=== PATIENT | male | born 1995 | race Two or more races ===

== ENCOUNTER 2019-03-06 11:43 | Outpatient (CLI) | payer OTHER ==
[~2019-03-06 11:43] MED LIST: ADVAIR 2501 DISK W/1; ATROVENT21 MCG; IMODIUM A-D2 MG PO; PEPCID40 MG PO; PHENERGAN25 MG PO; PROVENTIL0.5 ML/2.5
== END 2019-03-06 11:55 | disposition home or self-care (01) ==
LOC: LAB 11:43
DX: D51.0 Vitamin B12 deficiency anemia due to intrinsic factor deficiency (principal); D51.1 Vitamin B12 deficiency anemia due to selective vitamin B12 malabsorption with proteinuria; K29.40 Chronic atrophic gastritis without bleeding; B96.81 Helicobacter pylori [H. pylori] as the cause of diseases classified elsewhere; D50.8 Other iron deficiency anemias; D51.8 Other vitamin B12 deficiency anemias; I10 Essential (primary) hypertension; E03.8 Other specified hypothyroidism; E06.3 Autoimmune thyroiditis; R97.0 Elevated carcinoembryonic antigen [CEA]

== ENCOUNTER → 2019-06-02 | Outpatient (CLI) | payer OTHER | END | disposition home or self-care (01) | LOC: RAD 15:30 | DX: M77.42 Metatarsalgia, left foot (principal); M25.572 Pain in left ankle and joints of left foot ==

== ENCOUNTER → 2019-06-03 | Outpatient (CLI) | payer OTHER | END | disposition home or self-care (01) | LOC: RAD 12:38 → SONOGRAMA 12:38 → MAMO-SONO 13:15 | DX: S93.492A Sprain of other ligament of left ankle, initial encounter (principal) ==

== ENCOUNTER 2019-06-09 09:32 | Outpatient (CLI) | payer OTHER | END 2019-06-09 09:39 | disposition home or self-care (01) | LOC: LAB 09:32 | DX: D51.0 Vitamin B12 deficiency anemia due to intrinsic factor deficiency (principal); D51.1 Vitamin B12 deficiency anemia due to selective vitamin B12 malabsorption with proteinuria; K29.40 Chronic atrophic gastritis without bleeding; B96.81 Helicobacter pylori [H. pylori] as the cause of diseases classified elsewhere; D50.8 Other iron deficiency anemias; D51.8 Other vitamin B12 deficiency anemias; I10 Essential (primary) hypertension; D55.0 Anemia due to glucose-6-phosphate dehydrogenase [G6PD] deficiency; K29.30 Chronic superficial gastritis without bleeding; K31.84 Gastroparesis ==

== ENCOUNTER 2019-09-09 14:55 | Outpatient (CLI) | payer OTHER | END 2019-09-09 15:04 | disposition home or self-care (01) | LOC: LAB 14:55 | DX: K29.30 Chronic superficial gastritis without bleeding (principal); K29.40 Chronic atrophic gastritis without bleeding ==

== ENCOUNTER 2019-11-07 12:05 | Outpatient (CLI) | payer OTHER | END 2019-11-07 15:00 | disposition home or self-care (01) | LOC: LAB 12:05 | DX: R05 Cough (principal); D50.8 Other iron deficiency anemias; D51.1 Vitamin B12 deficiency anemia due to selective vitamin B12 malabsorption with proteinuria; K29.40 Chronic atrophic gastritis without bleeding; B96.81 Helicobacter pylori [H. pylori] as the cause of diseases classified elsewhere; I10 Essential (primary) hypertension; E03.8 Other specified hypothyroidism ==

== ENCOUNTER 2020-10-01 10:26 | Outpatient (CLI) | payer OTHER | END 2020-10-01 10:30 | disposition home or self-care (01) | LOC: LAB 10:26 | PROVIDERS: ATTEND Internal Medicine Hematology & Oncology | DX: B96.81 Helicobacter pylori [H. pylori] as the cause of diseases classified elsewhere (principal); D50.8 Other iron deficiency anemias; I10 Essential (primary) hypertension; E03.8 Other specified hypothyroidism; R97.0 Elevated carcinoembryonic antigen [CEA]; R97.8 Other abnormal tumor markers; D51.0 Vitamin B12 deficiency anemia due to intrinsic factor deficiency; D51.1 Vitamin B12 deficiency anemia due to selective vitamin B12 malabsorption with proteinuria; K29.40 Chronic atrophic gastritis without bleeding ==

== ENCOUNTER 2020-10-06 09:17 | Outpatient (CLI) | payer OTHER | END 2020-10-06 09:36 | disposition home or self-care (01) | LOC: SONOGRAMA 09:17 | PROVIDERS: ATTEND Internal Medicine Hematology & Oncology | DX: E04.2 Nontoxic multinodular goiter (principal) ==

== ENCOUNTER 2020-11-16 10:07 | Outpatient (CLI) | payer OTHER | END 2020-11-16 10:16 | disposition home or self-care (01) | LOC: LAB 10:07 | PROVIDERS: ATTEND Internal Medicine | DX: E23.0 Hypopituitarism (principal); E03.8 Other specified hypothyroidism; E27.40 Unspecified adrenocortical insufficiency; I10 Essential (primary) hypertension ==

== ENCOUNTER → 2024-08-01 09:06 | Outpatient (CLI) | payer OTHER ==
[2024-08-01 10:08] LABS: PH,URINE 5.5 (5.0-8.0); URINE APPEARANCE Turbid; URINE BILIRRUBIN Negative (NEGATIVE); URINE BLOOD Negative; URINE COLOR Yellow; URINE GLUCOSE Negative (NEGATIVE); URINE KETONE Negative (NEGATIVE); URINE LEUKOCYTE Negative; URINE NITRATE Negative; URINE PROTEIN Negative (NEGATIVE)
[2024-08-01 10:12] LABS: URINE EPITHELIAL CELLS 2.8 uL (0.0-38.8); URINE WBC 1.8 uL (0.0-23.2)
[2024-08-01 10:14] LABS: URINE CAST 0.58 uL (0.0-1.40); URINE RBC 0.1 uL (0.0-20.8)
[2024-08-01 10:33] LABS: HEMATOCRIT 46.2 % (39.0-48.0); HEMOGLOBIN 15.9 g/dL (13-16.00); MEAN CELL VOLUME 92.3 fL (80.0-100.00); MEAN CORPUSCULAR HEMOGLOBIN 31.7 pg (27.00-32.0); MEAN CORPUSCULAR HGB CONC 34.4 g/dl (32.0-36.0); PLATELET COUNT 208 K/uL (150-450); RED BLOOD COUNT 5.01 M/uL (4.00-6.00)
[2024-08-01 11:19] LABS: ALBUMIN 3.6 gm/dL (3.4-5.0); BILIRUBIN TOTAL 0.5 mg/dL (0.3-1.2); CALCIUM 8.9 mg/dL (8.5-10.1); CREATININE SERUM 1.16 mg/dL (0.70-1.30); GFR 74.43; GLOBULINA 3.5 G/DL (2.4-3.5); POTASSIUM 4.24 mEq/L (3.5-5.1); T4 TOTAL 9.29 UG/DL (4.5-12.1); TOTAL PROTEIN 7.1 gm/dL (6.4-8.2); TSH 2.02 uIU/mL (0.358-3.74)
== END | disposition home or self-care (01) ==
LOC: LAB 09:06
DX: D50.9 Iron deficiency anemia, unspecified (principal); E03.8 Other specified hypothyroidism; N39.0 Urinary tract infection, site not specified; E55.9 Vitamin D deficiency, unspecified; E16.1 Other hypoglycemia; E78.2 Mixed hyperlipidemia; Z11.3 Encounter for screening for infections with a predominantly sexual mode of transmission